=== PATIENT | female | born 1965 | race Caucasian/White ===

== ENCOUNTER 2025-02-12 15:40 | Emergency (ER) | payer OTHER, SELFPAY ==
--- NOTE | 2025-02-12 15:48 | ED.EAR ---
HPI - Ear Problem General Chief complaint: Ear Stated complaint: q-tip stuck in left ear Time Seen by Provider: 02/12/25 15:50 Source: patient and RN notes reviewed Mode of arrival: ambulatory Limitations: no limitations History of Present Illness HPI Narrative: 59-year-old female presents with concern for foreign body in the left ear. Reports she was using a Q-tip today when the cotton tip care. She reports decreased hearing. She denies pain or drainage. MD Complaint: foreign body Related Data Home Medications ?Medication ?Instructions ?Recorded ?Confirmed ?Last Taken ?Type acetaminophen 500 mg oral powder 500 mg PO Q6H PRN 04/18/23 04/18/23 Unknown History packet (Tylenol Extra Strength) ibuprofen 200 mg tablet 200 mg PO Q6H PRN 04/18/23 04/18/23 Unknown History diltiazem HCl 120 mg mg PO 02/12/25 Unknown History capsule,extended release 24 hr losartan 50 mg tablet mg 02/12/25 Unknown History losartan 50 mg-hydrochlorothiazide tablet 02/12/25 Unknown History 12.5 mg tablet meloxicam 15 mg tablet mg 02/12/25 Unknown History montelukast 10 mg tablet mg 02/12/25 Unknown History Allergies Allergy/AdvReac Type Severity Reaction Status Date / Time tramadol Allergy Intermediate itching Verified 02/12/25 15:53 codeine Allergy Mild N/V Verified 02/12/25 15:53 Sulfa (Sulfonamide Allergy Mild RASH Verified 02/12/25 15:53 Antibiotics) diclofenac Allergy Unknown Diarrhea Verified 02/12/25 15:53 Review of Systems Review of Systems: ENT: Denies rhinorrhea, congestion, sinus pain, and sore throat. Reports foreign body in the left ear All systems reviewed & are unremarkable except as noted in HPI and below PMFSH Surgical History Surgical History (Updated 04/18/23 @ 14:02 by Jasmin Olivas CMA) History of lumpectomy of both breasts History of carpal tunnel surgery of right wrist History of right knee surgery Dr Galvan- 02/28/22 Social History Social History (Updated 04/18/23 @ 14:03 by Jasmin Olivas CMA) Smoking packs per day: 0.5 Smoking cigarettes per day: 10.0 Smoking status: Current every day smoker Alcohol intake: never Substance use: current Substance use type: marijuana Lack of Transportation: No Lack of Food: Never True Current Housing: I Have Housing Concerned About Future Housing: No Difficulty Paying Gas/Electric Bills: No Difficulty Paying for Meds: No Currently Unemployed: No Education: High School Diploma/GED Difficulty w/ Childcare or Family Care: No Living arrangements: with friend(s) Occupation/Education: occupation Additional occupation/education comments: [employer] Comments At time of signature, agree with nursing past medical, surgical, social and family history. There is no relevant family history pertinent to the presenting complaint Exam Narrative: GENERAL: Well-appearing, well-nourished, and in no acute distress. HEAD: Normocephalic EYES: PERRLA, conjunctivae clear ENT: Nares clear. Mucous membranes moist. TM pearly fong with sharp light reflex on the right, not visible on the left due to visible caught foreign body; no tragal tenderness, EAC unremarkable. No post or pre-auricular erythema, induration, or warmth noted. Oropharynx not erythematous without lesions. Tonsils not enlarged and without exudate, no drooling, no hoarseness, no trismus, uvula midline. NECK: Supple. No lymphadenopathy CHEST: No respiratory distress, speaks in full sentences. HEART: Regular rate and rhythm. No murmur heard. SKIN: Warm, dry, no rash. NEURO: Alert and oriented x3. PSYCH: Normal mood and affect Course Course Emergency Course: Patient is aware of diagnosis, understands and agrees to treatment plan. Anticipatory guidance given. Patient agrees to follow-up as directed and is aware of reasons to seek care at the emergency department. Portions of this record may have been created with voice recognition software Level of Care: Express Care Visit Vital Signs Vital signs: Vital Signs Temperature 96.9 F L 02/12/25 15:49 Pulse Rate 77 02/12/25 15:49 Respiratory Rate 18 02/12/25 15:49 Blood Pressure 141/80 H 02/12/25 15:49 Pulse Oximetry 97 02/12/25 15:49 Oxygen Delivery Room Air 02/12/25 15:49 Temperature 96.9 F L 02/12/25 15:49 Pulse Rate 77 02/12/25 15:49 Respiratory Rate 18 02/12/25 15:49 Blood Pressure 141/80 H 02/12/25 15:49 Pulse Oximetry 97 02/12/25 15:49 Oxygen Delivery Room Air 02/12/25 15:49 Reviewed. Procedures FB Removal Ear Foreign Body #1: Foreign Body Removal Date: 02/12/25 Foreign Body Removal Time: 15:54 Location: ear canal (L) Foreign Body Suspected: other (cotton) TM intact pre-procedure: yes Foreign Body Removed: yes Foreign Body Removal Technique: forceps Tympanic Membrane Intact Post Procedure: Yes Patient Tolerated Procedure: well Complications: none Medical Decision Making MDM Narrative Medical decision making narrative: I evaluated this in the [facility]. History is obtained from patient who is an independent historian and physical exam was performed.? Available medical records were reviewed. ? Exam findings and relevant testing show no acute concerns or changes; patient is non-toxic appearing and is in no distress. Differential diagnosis considered: Lee virus, strep pharyngitis, allergic rhinitis, upper respiratory tract infection, sinusitis, rhinosinusitis, nasopharyngitis. viral pharyngitis, otitis media, otitis externa, otitis effusion, pre/post auricular cellulitis, mastoiditis, cerumen impaction, foreign body. Exam findings show no acute concerns or changes; patient is non-toxic appearing and is in no distress. Patient is appropriate for outpatient treatment and follow-up. ? Differential diagnosis and treatment plan were discussed with the patient. Patient agrees with discussion and after shared medical decision making agrees with plan of care. All questions were answered to the patient's satisfaction. Patient is appropriate for outpatient treatment and follow-up. Vital Signs Vital Signs: Vital Signs Temperature 96.9 F L 02/12/25 15:49 Pulse Rate 77 02/12/25 15:49 Respiratory Rate 18 02/12/25 15:49 Blood Pressure 141/80 H 02/12/25 15:49 Pulse Oximetry 97 02/12/25 15:49 Oxygen Delivery Room Air 02/12/25 15:49 Temperature 96.9 F L 02/12/25 15:49 Pulse Rate 77 02/12/25 15:49 Respiratory Rate 18 02/12/25 15:49 Blood Pressure 141/80 H 02/12/25 15:49 Pulse Oximetry 97 02/12/25 15:49 Oxygen Delivery Room Air 02/12/25 15:49 Critical Care Time Critical Care Time Critical Care Time: No Discharge Plan Discharge Clinical Impression: Foreign body in ear Patient Disposition: Home Condition: Stable Instructions: Ear Foreign Body (ED) Additional Instructions: 1) Please follow-up with your primary care doctor as needed. 2) If you have any urgent concerns please go to the ER. 3) Please read and follow information included in discharge instructions. Patient Language: [place] Prescriptions: No Action Tylenol Extra Strength 500 mg powder in packet 500 mg PO Q6H PRN ibuprofen 200 mg tablet 200 mg PO Q6H PRN prednisone 10 mg tablet 10 mg PO BID Qty: 20 0RF Rx Instructions: 1 tablet PO bid Follow-up/Referrals: UNKNOWN,DOCTOR [Primary Care Provider] - Time of Disposition: 15:56
[2025-02-12 15:49] VITALS: BP 141/80; PULSE 77; RESP 18; TEMP 36.1; O2SAT 97
== END 2025-02-12 16:03 | disposition home or self-care (01) ==
PROVIDERS: Emergency Provider Nurse Practitioner
DX: T16.2XXA Foreign body in left ear, initial encounter (principal); W44.8XXA Other foreign body entering into or through a natural orifice, initial encounter; F17.210 Nicotine dependence, cigarettes, uncomplicated; F12.90 Cannabis use, unspecified, uncomplicated
CPT/HCPCS: 69200; 99212; G0463